=== PATIENT | female | born 1980 | race Two or more races ===

== ENCOUNTER 2021-11-12 18:00 | Emergency (ER) | payer MEDICAID ==
[~2021-11-12] VITALS: Ht 157.5 cm; Wt 67.1 kg
[2021-11-12 18:58] VITALS: BP_SYST 100
[2021-11-12 20:18] LABS: BASOPHILS # (AUTO) 0.1 K/uL (0.0-0.2); BASOPHILS % (AUTO) 0.9 % (0.0-2.0); EOSINOPHILS # (AUTO) 0.1 K/uL (0.0-0.4); EOSINOPHILS % (AUTO) 1.5 % (0.0-4.0); HEMATOCRIT 29.5 % (36-48); LYMPHOCYTES # (AUTO) 1.8 K/uL (1.0-5.5); LYMPHOCYTES % (AUTO) 25.2 % (20.5-51.5); MEAN CORPUSCULAR VOLUME 71 fL (79.0-98.0); MONOCYTES # (AUTO) 0.7 K/uL (0.0-1.0); MONOCYTES % (AUTO) 9.4 % (1.7-9.3); NEUTROPHILS # (AUTO) 4.6 K/uL (1.8-7.7); PLATELET COUNT (AUTO) 305 K/uL (130-430); RED BLOOD CELL COUNT(AUTO) 4.14 MIL/uL (4.2-6.2); RED CELL DISTRIBUTION WIDTH 21.3 % (9.0-15.0); WHITE BLOOD COUNT (AUTO) 7.3 K/uL (4.8-10.8)
[2021-11-12 20:32] LABS: CALCIUM 9.3 mg/dL (8.4-11.0); CREATININE 0.83 mg/dL (0.55-1.30); POTASSIUM 4.1 mmol/L (3.5-5.1)
--- NOTE | 2021-11-12 20:35 | NUR ---
Patient to ER bed 03 to gown for evaluation. Side rails up. Report given to PATRICIO Alexis
[2021-11-12 20:37] LABS: ALBUMIN 3.5 g/dL (3.4-4.8); TOTAL BILIRUBIN 0.3 mg/dL (0.0-1.0)
--- NOTE | 2021-11-12 20:40 | NUR ---
Pt in room 3 w/ cc of Left neck pain that started 3 days ago, thats now radiating to Left ear, and teeth. Pending MD wade.
[2021-11-12] MEDS ORDERED: KETOROLAC TROMETHAMINE 30 MG VIAL IM ONE (21:30)
[2021-11-12] MEDS: MORPHINE 4 MG INJ. 4 MG/ML VIAL IVP ONE ×2 (21:30→22:09)
--- NOTE | 2021-11-12 21:30 | NUR ---
Seen by MD at bedside
--- NOTE | 2021-11-12 22:00 | NUR ---
Pt refused IV morphine sulfate
--- NOTE | 2021-11-12 22:20 | NUR ---
Pt out odf ED to ct scan
[2021-11-12] MEDS ORDERED: iohexoL 350 mgI/mL, 100 ML INFUS..BTL IV ONE (22:35)
[2021-11-12 23:50] VITALS: BP_SYST 125
== END 2021-11-13 00:35 | disposition home or self-care (01) ==
LOC: SED 18:00
DX: M26.602 Left temporomandibular joint disorder, unspecified (principal); M54.2 Cervicalgia; R51.9 Headache, unspecified; Z79.899 Other long term (current) drug therapy
CPT/HCPCS: 99285; 70496; 80053; 83690; 85025; 36415; 70498; 70450; 76376; Q9967; J2270

== ENCOUNTER 2023-10-22 19:03 | Emergency (ER) | payer MEDICAID ==
[~2023-10-22] VITALS: Ht 157.5 cm; Wt 62.6 kg
[2023-10-22 19:18] VITALS: BP_SYST 112; PULSE 74; RESP 18; TEMP 98.4; O2SAT 100
[2023-10-22 20:10] VITALS: BP_SYST 112; PULSE 74; RESP 18; TEMP 98.4; O2SAT 100
== END 2023-10-22 20:10 | disposition home or self-care (01) ==
LOC: SED 19:03
DX: J02.9 Acute pharyngitis, unspecified (principal)
CPT/HCPCS: 99281

== ENCOUNTER 2023-11-08 22:03 | Emergency (ER) | payer MEDICAID ==
[~2023-11-08] VITALS: Ht 157.5 cm; Wt 64.4 kg
[2023-11-08 22:18] VITALS: BP_SYST 104; PULSE 68; RESP 19; TEMP 98; O2SAT 100
[2023-11-08 23:31] LABS: BILIRUBIN,URINE NEGATIVE (NEGATIVE); BLOOD, URINE NEGATIVE (NEGATIVE); CLARITY/URINE CLEAR (CLEAR); COLOR,URINE YELLOW (YELLOW); GLUCOSE,URINE NEGATIVE (NEGATIVE); KETONES,URINE NEGATIVE (NEGATIVE); LEUKOCYTE ESTERASE ,URINE NEGATIVE (NEGATIVE); NITRITE, URINE NEGATIVE (NEGATIVE); PROTEIN URINE NEGATIVE (NEGATIVE); UROBILINOGEN,URINE 0.2 (0.2-1.0)
[2023-11-08 23:54] LABS: BASOPHILS # (AUTO) 0.1 K/uL (0.0-0.2); BASOPHILS % (AUTO) 0.8 % (0.0-2.0); EOSINOPHILS # (AUTO) 0.1 K/uL (0.0-0.4); EOSINOPHILS % (AUTO) 1.2 % (0.0-4.0); HEMATOCRIT 27.8 % (36-48); LYMPHOCYTES # (AUTO) 2.6 K/uL (1.0-5.5); LYMPHOCYTES % (AUTO) 29.8 % (20.5-51.5); MEAN CORPUSCULAR HEMOGLOBIN 22 pg (27-31); MEAN CORPUSCULAR HGB CONC 32 % (32-36); MEAN CORPUSCULAR VOLUME 69 fL (79.0-98.0); MONOCYTES # (AUTO) 0.7 K/uL (0.0-1.0); MONOCYTES % (AUTO) 7.7 % (1.7-9.3); NEUTROPHILS # (AUTO) 5.2 K/uL (1.8-7.7); NEUTROPHILS % (AUTO) 60.5 % (40.0-70.0); PLATELET COUNT (AUTO) 354 K/uL (130-430); RED BLOOD CELL COUNT(AUTO) 4.05 MIL/uL (4.2-6.2); RED CELL DISTRIBUTION WIDTH 19.1 % (9.0-15.0); WHITE BLOOD COUNT (AUTO) 8.6 K/uL (4.8-10.8)
[2023-11-09] MEDS: KETOROLAC TROMETHAMINE 30 MG VIAL IVP ONE (00:07)
[2023-11-09 00:19] LABS: ALBUMIN 3.9 g/dL (3.4-4.8); CALCIUM 8.8 mg/dL (8.4-11.0); CREATININE 0.78 mg/dL (0.55-1.30); POTASSIUM 3.8 mmol/L (3.5-5.1); TOTAL BILIRUBIN 0.3 mg/dL (0.0-1.0); TOTAL PROTEIN, SERUM 7.3 g/dL (6.4-8.3)
[2023-11-09 00:20] LABS: BILIRUBIN,DIRECT 0.1 mg/dL (0.0-0.3)
[2023-11-09] MEDS ORDERED: IBUP-1969 PO (01:44)
[2023-11-09] MEDS ORDERED: POLY17PO4 PO (01:44)
[2023-11-09 01:55] VITALS: BP_SYST 123; PULSE 63; RESP 18; TEMP 97.3; O2SAT 100
== END 2023-11-09 01:49 | disposition home or self-care (01) ==
LOC: SED 22:03
DX: N94.89 Other specified conditions associated with female genital organs and menstrual cycle (principal); D25.9 Leiomyoma of uterus, unspecified; K57.90 Diverticulosis of intestine, part unspecified, without perforation or abscess without bleeding; K81.1 Chronic cholecystitis; R10.32 Left lower quadrant pain; Z79.899 Other long term (current) drug therapy; Z79.2 Long term (current) use of antibiotics
CPT/HCPCS: 99285; 74177; 96374; 80076; 80048; 81001; 83690; 85025; 36415; 81025; 81003; J1885; Q9967

== ENCOUNTER 2023-11-23 17:54 | Emergency (ER) | payer MEDICAID ==
[~2023-11-23] VITALS: Ht 157.5 cm; Wt 63.5 kg
[~2023-11-23 17:54] MED LIST: IBUP-1969 PO; POLY17PO4 PO
[2023-11-23 18:05] VITALS: BP_SYST 109; PULSE 90; RESP 16; TEMP 97.7; O2SAT 98
[2023-11-23 20:32] VITALS: BP_SYST 110; PULSE 88; RESP 18; TEMP 97.5; O2SAT 98
== END 2023-11-23 20:32 | disposition home or self-care (01) ==
LOC: SED 17:54
DX: R07.0 Pain in throat (principal); M54.2 Cervicalgia; Z11.3 Encounter for screening for infections with a predominantly sexual mode of transmission; Z79.899 Other long term (current) drug therapy
CPT/HCPCS: 70490; 99284

== ENCOUNTER 2023-12-12 21:02 | Emergency (ER) | payer MEDICAID ==
[~2023-12-12] VITALS: Ht 157.5 cm; Wt 63.5 kg
[2023-12-12 21:13] VITALS: BP_SYST 98; PULSE 70; RESP 16; TEMP 96.1; O2SAT 99
[2023-12-12 22:20] VITALS: BP_SYST 98; PULSE 70; RESP 16; TEMP 96.1; O2SAT 99
== END 2023-12-13 00:58 | disposition home or self-care (01) ==
LOC: SED 21:02
DX: J02.9 Acute pharyngitis, unspecified (principal); Z79.899 Other long term (current) drug therapy
CPT/HCPCS: 99281